=== PATIENT | female | born 1960 | race American Indian/Alaskan Native ===

== ENCOUNTER 2016-07-11 08:54 | Emergency (ER) | payer OTHER ==
[2016-07-11 09:14] VITALS: TEMP 98.5
--- NOTE | 2016-07-11 09:31 | C.PDOC ---
History Of Present Illness 56 year old female presents to the ED with complaints of redness and yellow discharged to her right eye. Patient states her right eye was irritated yesterday and progressively worsened overnight. She wears glasses and has not used anything for the irritation. Denies use of contacts, history of eye problems, injury, fever, or any other complaints at this time. Time Seen by Provider: 07/11/16 09:28 Chief Complaint (Nursing): Eye Problem History Per: Patient History/Exam Limitations: no limitations Onset/Duration Of Symptoms: Days Current Symptoms Are (Timing): Still Present Injury To Eye?: No Severity: Mild Wears Contact Lens?: No Associated Symptoms: Discharge From Eye. denies: Decreased Vision Past Medical History Reviewed: Historical Data, Nursing Documentation, Vital Signs Vital Signs: Last Vital Signs Temp 98.5 F 07/11/16 09:04 Pulse 70 07/11/16 09:48 Resp 18 07/11/16 09:48 BP 124/72 07/11/16 09:48 Pulse Ox 97 07/11/16 10:42 - Medical History PMH: Denies: HTN (DENIED BY PT) Family History: States: Unknown Family Hx - Social History Hx Tobacco Use: No Hx Alcohol Use: No Hx Substance Use: No - Immunization History Hx Tetanus Toxoid Vaccination: Yes Hx Influenza Vaccination: Yes Hx Pneumococcal Vaccination: Yes Review Of Systems Except As Marked, All Systems Reviewed And Found Negative. Constitutional: Negative for: Fever, Chills Eyes: Positive for: Redness (+right eye redness), Other (+Yellow discharge). Negative for: Pain, Vision Change, Eyelid Inflammation Physical Exam - Physical Exam Appears: Non-toxic, No Acute Distress Skin: Normal Color, Warm, Dry Head: Atraumatic, Normacephalic Eye(s): bilateral: PERRL, EOMI, right: Other (+Moderate injection with purulent discharge), left: Normal Inspection Oral Mucosa: Moist Neurological/Psych: Oriented x3, Normal Speech, Normal Cognition ED Course And Treatment O2 Sat by Pulse Oximetry: 97 (Room air) Pulse Ox Interpretation: Normal Progress Note: Rx given and patient advised outpatient follow up if she sees no improvement in 3-4 days. Disposition Counseled Patient/Family Regarding: Diagnosis, Need For Followup - Disposition Referrals: Geovanni Mahoney MD [Staff Provider] - Disposition: HOME/ ROUTINE Disposition Time: 09:28 Condition: GOOD Additional Instructions: Follow up with eye md if not getting better in 3-4 days Prescriptions: Gentamicin Sulfate [Garamycin 0.3% Opth] 2 drop TOP QID #1 bottle Instructions: Conjunctivitis (ED) Forms: Work Excuse - Clinical Impression Clinical Impression: Conjunctivitis - Scribe Statement The provider has reviewed the documentation as recorded by the Scribe Carlota Fulton. Provider Attestation: All medical record entries made by the Scribe were at my direction and personally dictated by me. I have reviewed the chart and agree that the record accurately reflects my personal performance of the history, physical exam, medical decision making, and the department course for this patient. I have also personally directed, reviewed, and agree with the discharge instructions and disposition.
[2016-07-11 09:49] VITALS: BP 124/72; PULSE 70; RESP 18
[2016-07-11 10:37] VITALS: O2SAT 97
== END 2016-07-11 09:50 | disposition home or self-care (01) ==
LOC: SUPCPDRO 08:54 → C.ER 08:54
DX: H10.9 Unspecified conjunctivitis (principal)

== ENCOUNTER 2017-10-22 16:08 | Emergency (ER) | payer BC, OTHER ==
[2017-10-22 16:14] VITALS: RESP 18; O2SAT 95
--- NOTE | 2017-10-22 17:31 | RAD ---
Date of service: 10/22/2017 PROCEDURE: Radiographs of the Lumbar Spine. HISTORY: pain, no trauma COMPARISON: No prior. FINDINGS: BONES: Normal alignment. Grade 1 anterolisthesis of L4 on L5. No fracture. DISC SPACES: Multilevel disc space narrowing with endplate osteophytic changes, most prominent at L4-5. OTHER FINDINGS: None. IMPRESSION: No acute fracture. Multilevel degenerative changes, most prominent at L4-5, were there is also grade 1 anterolisthesis. .
--- NOTE | 2017-10-22 18:07 | C.PDOC ---
History Of Present Illness 57 y/o female presents to ED with c/o atraumatic mid back pain since she woke up this morning. Patient states she did not take pain medication and denies dysuria, hematuria, saddle anesthesia or any other complaints at this time. Time Seen by Provider: 10/22/17 16:43 Chief Complaint (Nursing): Back Pain History Per: Patient History/Exam Limitations: no limitations Onset/Duration Of Symptoms: Days Current Symptoms Are (Timing): Still Present Quality Of Discomfort: "Pain" Past Medical History Reviewed: Historical Data, Nursing Documentation, Vital Signs Vital Signs: Last Vital Signs Temp 98.9 F 10/22/17 18:32 Pulse 77 10/22/17 18:32 Resp 18 10/22/17 18:32 BP 148/77 10/22/17 18:32 Pulse Ox 95 10/22/17 18:34 - Medical History PMH: No Chronic Diseases Surgical History: No Surg Hx Family History: States: No Known Family Hx - Social History Hx Tobacco Use: No Hx Alcohol Use: No Hx Substance Use: No - Immunization History Hx Tetanus Toxoid Vaccination: Yes Hx Influenza Vaccination: Yes Hx Pneumococcal Vaccination: Yes Review Of Systems Gastrointestinal: Negative for: Nausea, Vomiting Musculoskeletal: Positive for: Back Pain Skin: Negative for: Rash Neurological: Negative for: Weakness, Numbness Physical Exam - Physical Exam Appears: Non-toxic, No Acute Distress Skin: Warm, Dry, No Rash Head: Atraumatic, Normacephalic Eye(s): bilateral: Normal Inspection Oral Mucosa: Moist Back: No CVA Tenderness, Other (paralumbar tenderness bilateral, mid back tenderness) Extremity: Normal ROM, Capillary Refill (<2 seconds) Neurological/Psych: Oriented x3, Normal Motor, Normal Sensation ED Course And Treatment O2 Sat by Pulse Oximetry: 95 (RA) Pulse Ox Interpretation: Normal Progress Note: Valium and Toradol administered. On re evaluation patient feels better and agres with plan of discharge Disposition Counseled Patient/Family Regarding: Diagnosis, Need For Followup, Rx Given - Disposition Referrals: Andre Alba MD [Staff Provider] - Disposition: HOME/ ROUTINE Disposition Time: 18:05 Condition: STABLE Additional Instructions: Please follow up with your doctor Take medications as directed Return to ER if worse Prescriptions: Cyclobenzaprine [Cyclobenzaprine HCl] 10 mg PO BID #10 tab Ibuprofen [Motrin] 600 mg PO Q6H #24 tab Instructions: Low Back Pain (DC) Forms: [facility] (Icelandic), Work Excuse - Clinical Impression Clinical Impression: Low back pain, Arthritis, low back - PA / [employer] / Resident Statement MD/DO has reviewed & agrees with the documentation as recorded. - Scribe Statement The provider has reviewed the documentation as recorded by the Aliviaibnguyen Hedrick All medical record entries made by the Karthik were at my direction and personally dictated by me. I have reviewed the chart and agree that the record accurately reflects my personal performance of the history, physical exam, medical decision making, and the department course for this patient. I have also personally directed, reviewed, and agree with the discharge instructions and disposition.
[2017-10-22 18:34] VITALS: BP 148/77; PULSE 77; TEMP 98.9
== END 2017-10-22 18:33 | disposition home or self-care (01) ==
LOC: C.ER 16:08
DX: M54.5 Low back pain (principal); M19.90 Unspecified osteoarthritis, unspecified site
CPT/HCPCS: 72100; 96372; 99283; J1885

== ENCOUNTER 2018-07-11 16:40 | Emergency (ER) | payer BC ==
[2018-07-11 17:11] VITALS: TEMP 98.3; O2SAT 98
[2018-07-11] MEDS ORDERED: Aspirin 325 mg EC Tablets PO STA (19:02)
[2018-07-11] MEDS ORDERED: Aspirin 325 mg EC Tablets PO ONE (19:21)
[2018-07-11 19:45] LABS: BASO % 0.2 % (0.0-2.0); EOS # 0.1 K/uL (0.0-0.7); EOS % 0.6 % (0.0-4.0); HEMOGLOBIN 11.4 g/dL (11.0-16.0); LYMPH # 2.5 K/uL (1.0-4.3); LYMPH % 27.1 % (20.0-40.0); MEAN CELL VOLUME 83.9 fL (81.0-99.0); MEAN CORPUSCULAR HEMOGLOBIN 27.8 pg (27.0-31.0); MEAN CORPUSCULAR HGB CONC 33.2 g/dL (33.0-37.0); MEAN PLATELET VOLUME 9.4 fL (7.2-11.7); MONO # 0.5 K/uL (0.0-0.8); MONO % 5.3 % (0.0-10.0); NEUT # 6.1 K/uL (1.8-7.0); NEUT % 66.8 % (50.0-75.0); NRBC % 0.1 % (0.0-2.0); RBC 4.1 Mil/uL (3.80-5.20); RED CELL DISTRIBUTION WIDTH 15.2 % (11.5-14.5); WHITE BLOOD COUNT 9.1 K/uL (4.8-10.8)
[2018-07-11 19:50] LABS: INR 1.1; PARTIAL THROMBOPLASTIN TIME 43 SECONDS (21-34); PROTHROMBIN TIME 12.1 SECONDS (9.7-12.2)
[2018-07-11 20:02] LABS: ALB/GLOB RATIO 1.1 (1.0-2.1)
[2018-07-11 20:06] LABS: ALBUMIN 3.7 g/dL (3.5-5.0); BLOOD UREA NITROGEN 14 mg/dL (7-17); CALCIUM 8.5 mg/dl (8.6-10.4); GFR NON-AFRICAN AMERICAN > 60
[2018-07-11 20:07] LABS: ALT/SGPT 14 U/L (9-52); AST/SGOT 29 U/L (14-36)
[2018-07-11 20:20] LABS: B-TYPE NATRIURETIC PEPTIDE 104 pg/mL (0-900)
--- NOTE | 2018-07-11 21:09 | C.PDOC ---
History Of Present Illness 58 year old female presents to ED with complaint of experiencing palpitations while she was getting ready for work 8 hours ago. 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 Patient denies sleep apnea and notes 30 pound weight gain. Patient denies chest pain, SOB, nausea, and vomiting. Time Seen by Provider: 07/11/18 18:18 Chief Complaint (Nursing): Palpitations History Per: Patient History/Exam Limitations: no limitations Onset/Duration Of Symptoms: Hrs (8) Current Symptoms Are (Timing): Still Present Past Medical History Reviewed: Historical Data, Nursing Documentation, Vital Signs Vital Signs: Last Vital Signs Temp 98.3 F 07/11/18 17:07 Pulse 68 07/11/18 17:32 Resp 17 07/11/18 17:32 BP 116/64 07/11/18 17:07 Pulse Ox 98 07/11/18 17:32 - Medical History PMH: Denies: Asthma, HTN (DENIED BY PT) Surgical History: No Surg Hx Family History: States: Unknown Family Hx - Social History Hx Tobacco Use: No Hx Alcohol Use: No Hx Substance Use: No - Immunization History Hx Tetanus Toxoid Vaccination: Yes Hx Influenza Vaccination: Yes Hx Pneumococcal Vaccination: Yes Review Of Systems Constitutional: Negative for: Fever, Chills Cardiovascular: Positive for: Palpitations. Negative for: Chest Pain, Light Headedness Respiratory: Negative for: Shortness of Breath Gastrointestinal: Negative for: Nausea, Vomiting Neurological: Negative for: Dizziness Physical Exam - Physical Exam Appears: No Acute Distress, Other (obese, black female) Skin: Normal Color, Warm, Dry Head: Atraumatic, Normacephalic Neck: Normal ROM, Supple Chest: Symmetrical, No Deformity Cardiovascular: Rhythm Regular, No Murmur Respiratory: No Accessory Muscle Use, No Rales, No Rhonchi, No Wheezing Gastrointestinal/Abdominal: Soft, No Tenderness Extremity: No Swelling, Other (obese bilateral lower extremities) Neurological/Psych: Oriented x3, Normal Speech, Normal Cognition ED Course And Treatment - Laboratory Results Result Diagrams: 07/11/18 19:32 07/11/18 19:32 Lab Results: PT 12.1 SECONDS (9.7-12.2) 07/11/18 19:32 INR 1.1 07/11/18 19:32 APTT 43 SECONDS (21-34) H 07/11/18 19:32 Troponin I < 0.0120 ng/mL (0.00-0.120) 07/11/18 19:32 NT-Pro-B Natriuret Pep 104 pg/mL (0-900) 07/11/18 19:32 Total Bilirubin 0.2 mg/dL (0.2-1.3) 07/11/18 19:32 AST 29 U/L (14-36) 07/11/18 19:32 ALT 14 U/L (9-52) 07/11/18 19:32 Alkaline Phosphatase 93 U/L (38-126) 07/11/18 19:32 Total Protein 6.9 g/dL (6.3-8.3) 07/11/18 19:32 Albumin 3.7 g/dL (3.5-5.0) 07/11/18 19:32 Globulin 3.3 gm/dL (2.2-3.9) 07/11/18 19:32 Albumin/Globulin Ratio 1.1 (1.0-2.1) 07/11/18 19:32 Lab Interpretation: Normal (trop/bnp/d-dimer neg.) ECG: Interpreted By Me ECG Rhythm: Sinus Rhythm ECG Interpretation: Normal Rate From EC O2 Sat by Pulse Oximetry: 98 (in RA) Pulse Ox Interpretation: Normal - Radiology CXR: Interpreted by Me CXR Interpretation: Yes: No Acute Disease Progress Note: EKG and CXR ordered. Labs ordered with CMP, CBC, cardiac enzymes, and UA. Patient give aspirin Reevaluation Time: 21:33 Reassessment Condition: Unchanged (remain asymptomatic) Medical Decision Making Medical Decision Making: mild Palps this AM normal card w/u 40# weight gain concerning, now 275# diet/exercise educated Disposition Doctor Will See Patient In The: Office Counseled Patient/Family Regarding: Studies Performed, Diagnosis - Disposition Disposition: HOME/ ROUTINE Disposition Time: 21:36 Condition: GOOD Forms: [facility] (Azerbaijani) - Clinical Impression Clinical Impression: Palpitations - Scribe Statement The provider has reviewed the documentation as recorded by the Scribe ([place] Ya) All medical record entries made by the Scribe were at my direction and personally dictated by me. I have reviewed the chart and agree that the record accurately reflects my personal performance of the history, physical exam, medical decision making, and the department course for this patient. I have also personally directed, reviewed, and agree with the discharge instructions and disposition.
[2018-07-11 21:25] LABS: D DIMER < 200 ng/mlDDU (0-243)
[2018-07-11 21:44] LABS: SQUAMOUS EPITHIAL 1 /hpf (0-5); URINE BACTERIA RARE (<OCC); URINE BILIRUBIN NEGATIVE (NEGATIVE); URINE BLOOD NEGATIVE (NEGATIVE); URINE CLARITY Clear (Clear); URINE COLOR Straw (YELLOW); URINE GLUCOSE (UA) NORMAL (Normal); URINE LEUKOCYTE ESTERASE 1+ Leu/uL (Negative); URINE PROTEIN NEGATIVE (NEGATIVE); URINE UROBILINOGEN NORMAL mg/dL (0.2-1.0)
[2018-07-11 22:05] VITALS: BP 120/60; PULSE 74; RESP 14
--- NOTE | 2018-07-12 09:45 | RAD ---
Chest x-ray two views History: Shortness of breath. COMPARISON: None available. Findings: Mild venous congestion. Tortuous aorta. Top normal heart size. Degenerative changes in the spine. Impression: Mild venous congestion. Tortuous aorta. Top normal heart size.
--- NOTE | 2018-07-12 10:51 | CARD ---
APPROVED REPORT Date of service: 07/11/2018 EKG Measurement Heart [id number] OR [id number] <Conclusion> Normal sinus rhythm Minimal voltage criteria for LVH, may be normal variant Nonspecific T wave abnormality Abnormal ECG
== END 2018-07-11 22:06 | disposition home or self-care (01) ==
LOC: C.ER 16:40
DX: R00.2 Palpitations (principal)